=== PATIENT | male | born 1995 | race Caucasian/White ===

== ENCOUNTER 2019-06-08 12:58 | Inpatient (IN) | payer MEDICAID ==
[~2019-06-08] VITALS: Ht 193 cm; Wt 83.5 kg
[2019-06-08 13:16] VITALS: BP 108/67
[2019-06-08] MEDS ORDERED: ZOLPIDEM TARTRATE 10 MG TABLET PO PRN (13:45)
[2019-06-08] MEDS ORDERED: LORazepam 2 MG TABLET PO PRN (13:45)
[2019-06-08] MEDS ORDERED: OLANZapine 5 MG RAPDIS TABLET PO PRN (13:45)
[2019-06-08] MEDS ORDERED: HALOPERIDOL 5 MG TABLET PO PRN (14:00)
[2019-06-08 16:27] VITALS: BP 114/64
[2019-06-08] MEDS ORDERED: LOPERAMIDE HCL 2 MG CAPSULE PO PRN (21:30)
[2019-06-08] MEDS ORDERED: CloNIDine HCL 0.1 MG TABLET PO PRN (21:30)
[2019-06-08] MEDS ORDERED: MAGNESIUM HYDROXIDE SUSPENSION 30 ML UDCUP PO PRN (21:30)
[2019-06-08] MEDS ORDERED: ALBUTEROL SULFATE HFA 90 MCG/PUFF 8 GM INHALER IH PRN (21:30)
[2019-06-08] MEDS ORDERED: MAG HYDROX/AL HYDROX/SIMETH ES 30 ML SUSPENSION UDCUP PO PRN (21:30)
[2019-06-08] MEDS ORDERED: ACETAMINOPHEN 325 MG TABLET PO PRN (21:30)
[2019-06-08] MEDS ORDERED: BACITRACIN 28.4 GM OINTMENT TP PRN (21:30)
[2019-06-08] MEDS ORDERED: ONDANSETRON HCL 4 MG TABLET PO PRN (21:30)
[2019-06-08] MEDS ORDERED: IBUPROFEN 600 MG TABLET PO PRN (21:30)
[2019-06-08] MEDS ORDERED: BENZOCAINE/MENTHOL LOZENGE MM PRN (21:30)
[2019-06-08] MEDS ORDERED: PETROLATUM,WHITE 28 GM JELLY TP PRN (21:30)
[2019-06-09 00:12] VITALS: BP 116/58
[2019-06-09] MEDS: OMEPRAZOLE 20 MG CAPSULE PO SCH ×2 (08:14→08:20)
[2019-06-09] MEDS ORDERED: DOCUSATE SODIUM 100 MG CAPSULE PO SCH (09:00)
[2019-06-09] MEDS ORDERED: TUBERCULIN, PURIFIED PROTEIN DERIVATIVE 5 TU/0.1 ML SYRINGE ID ONE (10:15)
[2019-06-09] MEDS ORDERED: OMEPRAZOLE 20 MG CAPSULE PO PRN (21:15)
[2019-06-09] MEDS ORDERED: DOCUSATE SODIUM 100 MG CAPSULE PO PRN (21:15)
[2019-06-10 06:43] VITALS: BP 118/63
[2019-06-10] MEDS: LITHIUM CARBONATE 600 MG CAPSULE PO SCH ×3 (08:05→17:00)
[2019-06-10 08:10] VITALS: BP 120/62
[2019-06-10 16:28] VITALS: BP 121/65
[2019-06-11 01:04] VITALS: BP 127/86
[2019-06-11 08:02] VITALS: BP 107/74
[2019-06-11] MEDS: LITHIUM CARBONATE 600 MG CAPSULE PO SCH ×3 (08:15→17:56)
[2019-06-11 16:12] VITALS: BP 118/69
[2019-06-12] MEDS ORDERED: LITH300C3 PO (08:02)
[2019-06-12] MEDS: LITHIUM CARBONATE 600 MG CAPSULE PO SCH (08:19)
[2019-06-12 08:27] VITALS: BP 127/70
== END 2019-06-12 10:33 | disposition home or self-care (01) | DRG 753 ==
LOC: B2S 13:40
PROVIDERS: ADMIT Psychiatry & Neurology Psychiatry; ATTEND Psychiatry & Neurology Psychiatry
DX: F31.9 Bipolar disorder, unspecified (principal); R45.851 Suicidal ideations; F41.9 Anxiety disorder, unspecified; G47.00 Insomnia, unspecified; K59.00 Constipation, unspecified; Z59.0 Homelessness; Z91.030 Bee allergy status